=== PATIENT | male | born 1965 | race Caucasian/White ===

== ENCOUNTER 2018-12-30 14:21 | Observation (INO) ==
--- NOTE | 2018-12-30 14:55 | Emergency Department Note ---
Disposition Clinical Impression: CHF (congestive heart failure) Qualifiers: Heart failure type: unspecified Heart failure chronicity: acute on chronic Qualified Code(s): I50.9 - Heart failure, unspecified Disposition: Admitted As Inpatient Condition: Good Time of Disposition: 16:40 General Adult HPI - General Chief complaint: ED General Medical Stated complaint: Swelling to legs, jaw pain, sleepy Time Seen by Provider: 12/30/18 14:39 Source: patient Mode of arrival: ambulatory Limitations: no limitations Nursing Notes Reviewed: Yes Vital Signs Reviewed: Yes - History of Present Illness HPI Narrative: 53 yo man with increasing BLE worse on left than right. He is able to walk and is not having pain. He also states that he is tired all of the time, but not sleeping well. He does snore. He was seen for the same complaint 12/05/18, treated with IV Lasix following cardiac workup and discharged. He endorses no new symptoms apart from increasing edema in RLE. Patient did note that his coworkers think he is more SOB, but he himself does not feel that he is. He denies fever, dizziness, worsening MTZ, CP, calf pain, inability to walk, N/V/D, dysuria, AMS, weakness, numbness, or other concerning symptoms. Patient has a history of CHF, but has been out of his furosemide (90mg) and HTN meds for several days. He has no history of DVT/PE and is a nonsmoker. Pain Scale: 3 - Related Data Allergies Allergy/AdvReac Type Severity Reaction Status Date / Time hydrochlorothiazide Allergy See Verified 12/05/18 13:26 Comments All systems ED: reviewed and negative except as stated. Review of Systems: As Per HPI Cardiovascular: Reports: edema Respiratory: Reports: dyspnea Endocrine: Reports: fatigue Past Medical History - Past Medical History Attestation: Yes The following information was validated with the patient. Source: patient, old records reviewed Medical history: Reports: CHF, hyperlipidemia, hypertension Psychiatric history: Reports: no psych history - Social History Smoking Status: Never smoker Alcohol use: Reports: none Drug use: Reports: none Physical Exam PE Gen: AOx3, NAD, falls asleep within minutes when lying flat HEENT: No lymphadenopathy, no erythema, no oropharyngeal edema. Pupils equal and reactive. Cardio: Regular rate and rhythm, muffled, no murmur, +3 pitting edema BLE with left worse than right; good perfusion to all extremities, no cyanosis Resp: Diminished breath sounds bilaterally, no wheeze, no cough. Patient able to talk comfortably but does pause briefly to catch breath. GI: Abdomen soft, nondistended, nontender to palpation. No ecchymoses, no rash. : No suprapubic tenderness or distention MSK: Normal ROM, no joint swelling or erythema apart from pitting edema BLE. No calf tenderness to palpation or with flexion of feet (neg Gill's sign) Neuro: CNI-XII intact, strength and sensation WNL Psych: Appropriate affect Course Course Narrative: Given PE consistent with fluid overload, history of CHF and being out of meds for several days, cardiac workup initiated and will likely diuresis patient. - Reevaluation(s) Reevaluation #1: VS stable. Lab work WNL apart from BNP. Started IV lasix 80mg. Time: 16:30 Vital Signs Temperature 98.4 F 12/30/18 14:28 Pulse Rate 91 12/30/18 14:28 Respiratory Rate 20 12/30/18 14:28 Blood Pressure 185/118 12/30/18 14:28 O2 Sat by Pulse Oximetry 96 12/30/18 14:28 Temperature 97.4 F L 12/30/18 22:24 Pulse Rate 79 12/30/18 22:25 Respiratory Rate 20 12/30/18 22:24 Blood Pressure 143/79 12/30/18 22:25 O2 Sat by Pulse Oximetry 96 12/30/18 22:24 Oxygen Delivery Oxygen Delivery Nasal Cannula Medical Decision Making - [facility] Narrative Medical decision making narrative: VS stable. Bedside US in ED negative for DVT bilaterally. Given increasing vascular congestion with BNP more than triple what it was 3 weeks ago, and symptoms of IVAN, which has not been diagnosd to this point, recommend admission for diuresis and IVAN evaluation. Patient and family agreed with plan. Hospitalist accepted. - Medical Records Medical records reviewed: Yes I reviewed the patient's medical records. - Lab Data Lab results reviewed: Yes I reviewed the patient's lab results. Result diagrams: 12/30/18 15:03 12/30/18 15:03 Lab Results 12/30/18 12/30/18 12/30/18 Range/Units 15:03 15:03 15:03 WBC 10.2 (4.3-11.1) K/mcL RBC 4.52 (4.19-5.50) M/mcL Hgb 12.9 (12.9-16.9) g/dL Hct 40.9 (37.5-50.1) % MCV 90.5 (83.0-100.0) fL MCH 28.5 (28.0-33.3) pg MCHC 31.5 L (31.6-35.5) g/dL RDW 16.3 H (11.5-14.5) % Plt Count 295 (140-400) K/mcL MPV 10.3 (9.4-12.4) fL Immature Gran % 1.3 (0-4) % Seg Neutrophils % 69.1 % Lymphocytes % 18.6 % Monocytes % 7.4 % Eosinophils % 2.9 % Basophils % 0.7 % Neutrophils # 7.0 (1.6-8.9) K/mcL Lymphocytes # 1.9 (0.6-4.6) K/mcL Monocytes # 0.8 (0.0-1.3) K/mcL Eosinophils # 0.3 (0.0-0.6) K/mcL Basophils # 0.1 (0.0-0.2) K/mcL Sodium (136-145) mEq/L Potassium (3.5-5.1) mEq/L Chloride (98-107) mEq/L Carbon Dioxide (23-29) mEq/L BUN (6-20) mg/dL Creatinine (0.70-1.30) mg/dL Est GFR ( Amer) (> 60) Est GFR (Non-Af Amer) (> 60) BUN/Creatinine Ratio (6-26) Glucose (70-105) mg/dL Calculated Osmolality (280-300) Calcium (8.6-10.3) mg/dL Total Bilirubin (0.3-1.0) mg/dL AST (13-39) Units/L ALT (7-52) Units/L Alkaline Phosphatase (34-104) Units/L Troponin I 0.03 (< 0.04) ng/mL B-Natriuretic Peptide 219 H (Less than 100) pg/mL Serum Total Protein (6.4-8.9) g/dL Albumin (3.5-5.7) g/dL Globulin (2.4-3.5) g/dL Albumin/Globulin Ratio (1.1-2.2) 12/30/18 Range/Units 15:03 WBC (4.3-11.1) K/mcL RBC (4.19-5.50) M/mcL Hgb (12.9-16.9) g/dL Hct (37.5-50.1) % MCV (83.0-100.0) fL MCH (28.0-33.3) pg MCHC (31.6-35.5) g/dL RDW (11.5-14.5) % Plt Count (140-400) K/mcL MPV (9.4-12.4) fL Immature Gran % (0-4) % Seg Neutrophils % % Lymphocytes % % Monocytes % % Eosinophils % % Basophils % % Neutrophils # (1.6-8.9) K/mcL Lymphocytes # (0.6-4.6) K/mcL Monocytes # (0.0-1.3) K/mcL Eosinophils # (0.0-0.6) K/mcL Basophils # (0.0-0.2) K/mcL Sodium 137 (136-145) mEq/L Potassium 3.7 (3.5-5.1) mEq/L Chloride 101 (98-107) mEq/L Carbon Dioxide 26 (23-29) mEq/L BUN 16 (6-20) mg/dL Creatinine 0.96 (0.70-1.30) mg/dL Est GFR ( Amer) > 60 (> 60) Est GFR (Non-Af Amer) > 60 (> 60) BUN/Creatinine Ratio 17 (6-26) Glucose 98 (70-105) mg/dL Calculated Osmolality 285 (280-300) Calcium 8.9 (8.6-10.3) mg/dL Total Bilirubin 0.5 (0.3-1.0) mg/dL AST 19 (13-39) Units/L ALT 16 (7-52) Units/L Alkaline Phosphatase 77 (34-104) Units/L Troponin I (< 0.04) ng/mL B-Natriuretic Peptide (Less than 100) pg/mL Serum Total Protein 7.1 (6.4-8.9) g/dL Albumin 4.0 (3.5-5.7) g/dL Globulin 3.1 (2.4-3.5) g/dL Albumin/Globulin Ratio 1.3 (1.1-2.2) - Radiology Data Radiology results reviewed: Yes I reviewed the patient's radiology results. Chest X-Ray 12/30/18 15:14 IMPRESSION: Cardiomegaly without a focal lung consolidation identified. D/ / Wilton Power / [employer] Interpreting Provider: Wilton Power Attestation Statement - Attestation Attestation: I, José Kwon, examined this patient and my medical decision-making was reviewed with the [employer] SUPERVISOR/PA/Advanced Practice Nurse/Resident Physician. I agree with the documented findings, disposition and treatment plan as described except to the extent set forth below. 53-year-old male presents emergency Department with concerns of swelling to the bilateral lower show his. Patient states that swelling left lower chin is worse in the right however is always larger than the right. Patient states he has a history congestive heart failure and has not been taking his Lasix. Patient initially was given a prescription for 20 mg of Lasix. He did not see significant improvement of the swelling of his lower extremities however so he went to an urgent care who told him to increase to 40 and a 60 and now most recently 90 mg of Lasix twice a day. Because he was using increased Lasix he ran out quickly and now has not taken any within the past few days. Patient denies recent fever. He is unable to lay flat at night secondary shortness of breath. Patient states he wakes up multiple times during the night. He likely has undiagnosed obstructive sleep apnea. Patient falls asleep during lulls in the conversation. I performed a bedside ultrasound of the bilateral lower extremities which did not show evidence of DVT. Chest x-ray shows vascular congestion. BNP is elevated however it is not greater than 500. Patient was given Lasix in the emergency department. He will be admitted to hospitalist for further care and evaluation.
[2018-12-30 15:23] LABS: Basophils # 0.1 K/mcL (0.0-0.2); Basophils % 0.7 %; Eosinophils # 0.3 K/mcL (0.0-0.6); Eosinophils % 2.9 %; Hematocrit 40.9 % (37.5-50.1); Hemoglobin 12.9 g/dL (12.9-16.9); Immature Granulocytes % 1.3 % (0-4); Lymphocytes # 1.9 K/mcL (0.6-4.6); Lymphocytes % 18.6 %; Mean Corpuscular HGB Conc 31.5 g/dL (31.6-35.5); Mean Corpuscular Hemoglobin 28.5 pg (28.0-33.3); Mean Corpuscular Volume 90.5 fL (83.0-100.0); Mean Platelet Volume 10.3 fL (9.4-12.4); Monocytes # 0.8 K/mcL (0.0-1.3); Monocytes % 7.4 %; Platelet Count 295 K/mcL (140-400); Red Blood Count 4.52 M/mcL (4.19-5.50); Red Cell Distribution Width 16.3 % (11.5-14.5); Segmented Neutrophils % 69.1 %; White Blood Count 10.2 K/mcL (4.3-11.1)
[2018-12-30 15:42] LABS: Alanine Aminotransferase 16 Units/L (7-52); Albumin/Globulin Ratio 1.3 (1.1-2.2); Alkaline Phosphatase 77 Units/L (34-104); Aspartate Amino Transferase 19 Units/L (13-39); BUN/Creatinine Ratio 17 (6-26); Bilirubin,Total 0.5 mg/dL (0.3-1.0); Blood Urea Nitrogen 16 mg/dL (6-20); Calcium 8.9 mg/dL (8.6-10.3); Carbon Dioxide 26 mEq/L (23-29); Chloride 101 mEq/L (98-107); Globulin 3.1 g/dL (2.4-3.5); Glucose 98 mg/dL (70-105); Osmolality,Calculated 285 (280-300); Potassium 3.7 mEq/L (3.5-5.1); Sodium 137 mEq/L (136-145); Total Protein 7.1 g/dL (6.4-8.9); eGFR For African Americans > 60 (> 60); eGFR For Non-African Americans > 60 (> 60)
[2018-12-30] MEDS ORDERED: Furosemide 40 MG/4 ML VIAL IVP ONE (16:07)
--- NOTE | 2018-12-30 17:06 | Internal Med History&Physical ---
Date of Encounter: 12/30/18 Time of Encounter: 17:04 Internal Medicine - H&P: HPI Chief complaint: shortness of breath, leg swelling Admitted From: Home Plans for Post Hospital Care: Home History of present illness: Mr. Ruggiero is a 53 year old male with past medical history of hypertension, hyperlipidemia, CHF unclear systolic or diastolic, borderline diabetes, obesity was sent in by his boss because they felt that he was sleeping at work a lot and also short of breath. Patient was seen in ER last month for bilateral lower extremity edema and was given Lasix and was discharged from ER. Patient is follows a nurse practitioner as a primary and has not seen for last 3 months. Recently patient has not filled his prescription of blood pressure medication and Lasix. He said his leg swelling started in July. He denies any chest pain. He does not have significant insight into all his illness. He does report feeling tired all the time and not sleeping well and feeling sleepy at work. He has noticed that his legs are more swollen than even before and he has put on significantly more weight. His boss noticed that he was short of breath and asked him to get to Hospital for further evaluation. He denies any chest pain, abdominal pain and nausea vomiting or diarrhea. He has some left-sided calf pain. He did have DVT study during his last visit which was negative. Patient was evaluated in ER and was found to have elevated BNP than his last visit. His blood pressure was also elevated. Patient was given dose of Lasix and admission was requested for CHF exacerbation. Patient denied any chest hong n. He reported he subjectively does not feel short of breath however others have told that he appears to be short of breath. He corroborates above mentioned history. He also mentioned he feels that he has a swelling behind his testicles. Has mild discomfort associated with it . he has had a left-sided inguinal hernia surgery many years ago. Denies any difficulty urinating or any bowel difficulties. Denies any history of heart attack in the past. Patient does not know his medication and would need to be confirmed through pharmacy. Past Med Surg Social Fam HX - Past Medical History Medical history: CHF, hyperlipidemia, hypertension Psychiatric history: no psych history - Past Surgical History Additional surgical history: 2 hernia surgery - Social History Smoking Status: Never smoker Alcohol use: none Drug use: none - Additional Family History Additional family history: Sister has sleep apnea Internal Medicine - H&P: Meds Allergy/AdvReac Type Severity Reaction Status Date / Time hydrochlorothiazide Allergy See Verified 12/05/18 13:26 Comments All Systems PM: A 10-system review of systems was performed and is negative for pertinent findin gs except as documented above in the HPI. - Constitutional Vitals: Temp Pulse Resp BP Pulse Ox 98.4 F 94 24 172/100 100 12/30/18 14:58 12/30/18 16:47 12/30/18 16:47 12/30/18 16:47 12/30/18 16:47 Exam: Constitutional: Vitals as noted. Conversant. obese Eyes : Sclera white, conjunctiva clear, no lid lag, PEARLA. ENT : Grossly normal hearing. Moist mucus membranes. Respiratory : Clear to auscultation bilaterally. No accessory muscle use, rales, rhonchi or wheezes Cardiovascular : RRR, +S1, +S2. no murmur, gallop, rubs. No chest wall tenderness GI/Abdominal : Soft, Non-tender, Non-distended, obese, no peritoneal signs. On scrotal exam a localized swelling discontinuous from testes upper limits could not be determined, no cough impulse felt Musculoskeletal: no deformity noted. 2+ edema Lt > Rt, pulses palpable and symmetrical in UE/LE. Lt calf tenderness. Neurological: AO X3, CN II-XII grossly intact, grossly normal motor and sensory exam. Skin: No skin rash, lesions or ulcers noted. Internal Med - H&P Results - Labs CBC & Chem 7: 12/30/18 15:03 12/30/18 15:03 Labs: Short CBC 12/30/18 Range/Units 15:03 WBC 10.2 (4.3-11.1) K/mcL Hgb 12.9 (12.9-16.9) g/dL Hct 40.9 (37.5-50.1) % Plt Count 295 (140-400) K/mcL Neutrophils # 7.0 (1.6-8.9) K/mcL BMP 12/30/18 15:03 Sodium 137 Potassium 3.7 Chloride 101 Carbon Dioxide 26 BUN 16 Creatinine 0.96 Glucose 98 Calcium 8.9 Cardiac Enzymes 12/30/18 Range/Units 15:03 Troponin I 0.03 (< 0.04) ng/mL Liver Function 12/30/18 Range/Units 15:03 Total Bilirubin 0.5 (0.3-1.0) mg/dL AST 19 (13-39) Units/L ALT 16 (7-52) Units/L Alkaline Phosphatase 77 (34-104) Units/L Albumin 4.0 (3.5-5.7) g/dL - EKG Data -: EKG Interpreted by Myself EKG shows normal: sinus rhythm - Impressions ITS Impressions Chest X-Ray 12/30/18 15:14 IMPRESSION: Cardiomegaly without a focal lung consolidation identified. D/ / Wilton Power / [employer] Interpreting Provider: Wilton Power - Assessment and Plan (1) Shortness of breath Current Visit: Yes Status: Acute Assessment and plan: Possibly related to CHF and noncompliance with his medication including Lasix and uncontrolled blood pressure We will obtain echocardiogram for further evaluation. We will keep patient on 40 twice a day Lasix. Monitor renal function. We will obtain d-dimer and DVT study. He did have negative study last month but currently he has some left cough pain. There is also a component of obesity hypoventilation and obstructive sleep apnea. Will need outpatient sleep study. Will need confirmation of his home medication and likely need to blood pressure medication on discharge. Measure weights daily and strength in and out monitoring. (2) Lower extremity edema Current Visit: Yes Status: Acute Assessment and plan: Possibly related to his CHF. However make sure there is no DVT. Also likely component of nonpitting edema given his obesity as well as lymphedema due to his obesity. (3) Scrotal swelling Current Visit: Yes Status: Acute Assessment and plan: Reported having scrotal swelling for unspecified time. Has mild associated pain. He has history of hernia surgery on that side. No cough impulse on palpation an upper limit could not be established. Possibly spermatic cord lesion. We will obtain pelvic CT for further evaluation. (4) Uncontrolled hypertension Current Visit: Yes Status: Acute Assessment and plan: Patient does not taking medication appropriately at home. Blood pressure 180s/110 in ER. We will likely need to medication for good cont rol. We will confirm home medication. We will start patient on beta toshia and lisinopril for now. (5) DVT prophylaxis Current Visit: Yes Status: Acute Assessment and plan: Heparin subcutaneous (6) Morbid (severe) obesity due to excess calories Current Visit: Yes Status: Acute Assessment and plan: Patient is morbidly obese likely due to poor diet. Discussed lifestyle changes to promote weight loss. Patient also likely had associated obesity hypoventilation syndrome and sleep disorder. Patient will need sleep study as outpatient. - Time Spent With Patient Total time spent is greater than 50% in coordination of care (as documented) at patient's floor/unit and/or counseling patient:
[2018-12-30] MEDS ORDERED: *HR* Labetalol 20 MG/4 ML SYRINGE IVP ONE (17:43)
[2018-12-30] MEDS: *HR* Heparin 5,000 UNIT/ML VIAL SQ SCH (20:45)
[2018-12-30] MEDS: Furosemide 40 MG/4 ML VIAL IVP SCH (21:33)
[2018-12-30 21:35] LABS: ABG Base Excess 7 mEq/L (-2 to 3); ABG HCO3 34 mEq/L (21-27); ABG Oxygen Saturation 96 % (95-98); ABG PCO2 56 mmHg (35-45); ABG PH 7.39 pH Units (7.32-7.45); ABG PO2 88 mmHg (85-104); ABG TCO2 35 mEq/L (20-26)
[2018-12-30 22:19] LABS: Amphetamine Screen,Urine Negative ng/mL (Cutoff=1000); Barbiturate Screen,Urine Negative ng/mL (Cutoff=200); Benzodiazepines Screen,Urine Negative ng/mL (Cutoff=200); Cannabinoid Screen,Urine Negative ng/mL (Cutoff = 50); Cocaine Screen,Urine Negative ng/mL (Cutoff= 300); Opiate Screen,Urine Negative ng/mL (Cutoff=300); Phencyclidine Screen,Urine Negative ng/mL (Cutoff=25)
[2018-12-31 02:48] LABS: BUN/Creatinine Ratio 18 (6-26); Blood Urea Nitrogen 18 mg/dL (6-20); Calcium 8.2 mg/dL (8.6-10.3); Carbon Dioxide 26 mEq/L (23-29); Chloride 100 mEq/L (98-107); Chol/HDL Ratio 6.5 (0-4.9); Cholesterol 254 mg/dL (< 200); Glucose 131 mg/dL (70-105); HDL Cholesterol 39 mg/dL (40-59); LDL Cholesterol,Calculated 166 mg/dL (0-99); Magnesium 2.1 mg/dL (1.6-2.6); Osmolality,Calculated 286 (280-300); Phosphorous 3.9 mg/dL (2.7-4.5); Potassium 3.6 mEq/L (3.5-5.1); Sodium 136 mEq/L (136-145); Triglycerides 244 mg/dL (< 150); eGFR For African Americans > 60 (> 60); eGFR For Non-African Americans > 60 (> 60)
[2018-12-31] MEDS: *HR* Heparin 5,000 UNIT/ML VIAL SQ SCH ×3 (05:43→22:42)
[2018-12-31] MEDS ORDERED: Acetaminophen 325 MG TABLET PO PRN (06:26)
[2018-12-31] MEDS: Furosemide 40 MG/4 ML VIAL IVP SCH ×2 (08:35→17:07)
[2018-12-31] MEDS ORDERED: Lisinopril 20 MG TABLET PO SCH (09:00)
--- NOTE | 2018-12-31 10:43 | Internal Med Progress Note ---
Hospitalist Progress Note - Encounter Date of Encounter: 12/31/18 Time of Encounter: 10:41 - Subjective Interval History: Mr. Ruggiero is a 53 year old male with past medical history of hypertension, hyperlipidemia, CHF unclear systolic or diastolic, borderline diabetes, obesity was sent in by his boss because they felt that he was sleeping at work a lot and also short of breath. Patient was seen in ER last month for bilateral lower extremity edema and was given Lasix and was discharged from ER. Patient is follows a nurse practitioner as a primary and has not seen for last 3 months. Recently patient has not filled his prescription of blood pressure medication and Lasix. He said his leg swelling started in July. He denies any chest pain. He does not have significant insight into all his illness. He does report feeling tired all the time and not sleeping well and feeling sleepy at work. He has noticed that his legs are more swollen than even before and he has put on significantly more weight. His boss noticed that he was short of breath and asked him to get to Hospital for further evaluation. He denies any chest pain, abdominal pain and nausea vomiting or diarrhea. He has some left-sided calf pain. He did have DVT study during his last visit which was negative. Patient was evaluated in ER and was found to have elevated BNP than his last visit. His blood pressure was also elevated. Patient was given dose of Lasix and admission was requested for CHF exacerbation. Patient denied any chest pain. He reported he subjectively does not feel short of breath however others have told that he appears to be short of breath. He corroborates above mentioned history. He also mentioned he feels that he has a swelling behind his testicles. Has mild discomfort associated with it . he has had a left-sided inguinal hernia surgery many years ago. Denies any difficulty urinating or any bowel difficulties. Denies any history of heart attack in the past. Patient does not know his medication and would need to be confirmed through pharmacy. - Exam Vitals: Temp Pulse Resp BP Pulse Ox 97.8 F 83 16 144/87 95 12/31/18 07:42 12/31/18 07:42 12/31/18 07:42 12/31/18 07:42 12/31/18 07:42 Exam: Constitutional: Vitals as noted. Conversant. obese Eyes : Sclera white, conjunctiva clear, no lid lag, PEARLA. ENT : Grossly normal hearing. Moist mucus membranes. Respiratory : Clear to auscultation bilaterally. No accessory muscle use, rales, rhonchi or wheezes Cardiovascular : RRR, +S1, +S2. no murmur, gallop, rubs. No chest wall tenderness GI/Abdominal : Soft, Non-tender, Non-distended, obese, no peritoneal signs. On scrotal exam a localized swelling discontinuous from testes upper limits could not be determined, no cough impulse felt Musculoskeletal: no deformity noted. 2+ edema Lt > Rt, pulses palpable and symmetrical in UE/LE. Lt calf tenderness. Neurological: AO X3, CN II-XII grossly intact, grossly normal motor and sensory exam. Skin: No skin rash, lesions or ulcers noted. - Assessment and Plan (1) Shortness of breath Current Visit: Yes Status: Acute Assessment and Plan: 12/30 Possibly related to CHF and noncompliance with his medication including Lasix and uncontrolled blood pressure We will obtain echocardiogram for further evaluation. We will keep patient on 40 twice a day Lasix. Monitor renal function. We will obtain d-dimer and DVT study. He did have negative study last month but currently he has some left cough pain. There is also a component of obesity hypoventilation and obstructive sleep apnea. Will need outpatient sleep study. Will need confirmation of his home medication and likely need to blood pressure medication on discharge. Measure weights daily and strength in and out monitoring. 12/31 Pending ECHO. Continue Lasix. (2) Lower extremity edema Current Visit: Yes Status: Acute Assessment and Plan: Possibly related to his CHF. However make sure there is no DVT. Also likely component of nonpitting edema given his obesity as well as lymphedema due to his obesity. (3) Scrotal swelling Current Visit: Yes Status: Acute Assessment and Plan: CT abd pelvis shoed bilateral inguinal hernia. f/u with surgery as outpatient. (4) Uncontrolled hypertension Current Visit: Yes Status: Acute Assessment and Plan: Patient does not taking medication appropriately at home. Blood pressure 180 s/110 in ER. started patient on beta toshia and lisinopril. BP improved. (5) DVT prophylaxis Current Visit: Yes Status: Acute Assessment and Plan: Heparin subcutaneous (6) Morbid (severe) obesity due to excess calories Current Visit: Yes Status: Acute Assessment and Plan: Patient is morbidly obese likely due to poor diet. Discussed lifestyle changes to promote weight loss. Patient also likely had associated obesity hypoventilation syndrome and sleep disorder. Patient will need sleep study as outpatient. - Time Spent with Patient Total time spent is greater than 50% in coordination of care (as documented) at patient's floor/unit and/or counseling patient: Greater than 35 minutes Plan of Care Discussed with: patient Internal Medicine: Result - Labs CBC & Chem 7: 12/30/18 15:03 12/31/18 02:09 Labs: Short CBC 12/30/18 Range/Units 15:03 WBC 10.2 (4.3-11.1) K/mcL Hgb 12.9 (12.9-16.9) g/dL Hct 40.9 (37.5-50.1) % Plt Count 295 (140-400) K/mcL Neutrophils # 7.0 (1.6-8.9) K/mcL BMP 12/30/18 12/31/18 15:03 02:09 Sodium 137 136 Potassium 3.7 3.6 Chloride 101 100 Carbon Dioxide 26 26 BUN 16 18 Creatinine 0.96 1.02 Glucose 98 131 H Calcium 8.9 8.2 L Cardiac Enzymes 12/30/18 Range/Units 15:03 Troponin I 0.03 (< 0.04) ng/mL Liver Function 12/30/18 Range/Units 15:03 Total Bilirubin 0.5 (0.3-1.0) mg/dL AST 19 (13-39) Units/L ALT 16 (7-52) Units/L Alkaline Phosphatase 77 (34-104) Units/L Albumin 4.0 (3.5-5.7) g/dL - ABG Interpretation ABG results: ABG ABG pH 7.39 pH Units (7.32-7.45) 12/30/18 21:28 ABG pCO2 56 mmHg (35-45) H 12/30/18 21:28 ABG pO2 88 mmHg (85-104) 12/30/18 21:28 ABG O2 Saturation 96 % (95-98) 12/30/18 21:28 PT/INR, D-dimer D-Dimer 547 ng/mLFEU (0-500) H 12/30/18 18:23 - Impressions Impressions Chest X-Ray 12/30/18 15:14 IMPRESSION: Cardiomegaly without a focal lung consolidation identified. D/ / Wilton Power / Wilton Power Interpreting Provider: Wilton Power Pelvis CT 12/30/18 20:05 IMPRESSION: Bilateral fat containing inguinal hernias larger on the left than the right. The inguinal hernia on the left extends into the left scrotal sac. D/ / 12/30/2018 20:15:18 Arnold Reina MD / [facility] Interpreting Provider: Arnold Reina MD Head CT 12/30/18 23:08 IMPRESSION: No acute intracranial abnormality. D/ / 12/31/2018 07:10:49 Arnold Reina MD / [facility] Interpreting Provider: Arnold Reina MD Consult Discharge Plan - Plan Referrals: Claudia Kaur FIREFIGHTER [Primary Care Provider] -
[2019-01-01] MEDS: *HR* Heparin 5,000 UNIT/ML VIAL SQ SCH ×3 (05:44→20:53)
[2019-01-01] MEDS: amLODIPine 5 MG TABLET PO SCH (08:51)
[2019-01-01] MEDS: Multivit/Ca/Min/Fe/FA 1 TAB TABLET PO SCH (08:51)
[2019-01-01] MEDS: Lisinopril 20 MG TABLET PO SCH ×2 (08:51→20:53)
[2019-01-01] MEDS: Furosemide 40 MG/4 ML VIAL IVP SCH ×2 (08:52→16:36)
--- NOTE | 2019-01-01 11:44 | Internal Med Progress Note ---
Hospitalist Progress Note - Encounter Date of Encounter: 01/01/19 Time of Encounter: 11:41 - Subjective Interval History: Mr. Ruggiero is a 53 year old male with past medical history of hypertension, hyperlipidemia, CHF unclear systolic or diastolic, borderline diabetes, obesity was sent in by his boss because they felt that he was sleeping at work a lot and also short of breath. Patient was seen in ER last month for bilateral lower extremity edema and was given Lasix and was discharged from ER. Patient is follows a nurse practitioner as a primary and has not seen for last 3 months. Recently patient has not filled his prescription of blood pressure medication and Lasix. He said his leg swelling started in July. He denies any chest pain. He does not have significant insight into all his illness. He does report feeling tired all the time and not sleeping well and feeling sleepy at work. He has noticed that his legs are more swollen than even before and he has put on significantly more weight. His boss noticed that he was short of breath and asked him to get to Hospital for further evaluation. He denies any chest pain, abdominal pain and nausea vomiting or diarrhea. He has some left-sided calf pain. He did have DVT study during his last visit which was negative. ECHO was unremarkable, Pt passed 6 min walk study. SOB improved with IV lasix as well as leg swelling. Sleep study ordered. Pt seen and examined in the room. He reported improved sob and leg swelling. - Exam Vitals: Temp Pulse Resp BP Pulse Ox 97.6 F 60 15 134/88 98 01/01/19 07:22 01/01/19 07:22 01/01/19 07:22 01/01/19 07:22 01/01/19 09:59 Exam: Constitutional: Vitals as noted. Conversant. obese Eyes : Sclera white, conjunctiva clear, no lid lag, PEARLA. ENT : Grossly normal hearing. Moist mucus membranes. Respiratory : Clear to auscultation bilaterally. No accessory muscle use, rales, rhonchi or wheezes Cardiovascular : RRR, +S1, +S2. no murmur, gallop, rubs. No chest wall tenderness GI/Abdominal : Soft, Non-tender, Non-distended, obese, no peritoneal signs. On scrotal exam a localized swelling discontinuous from testes upper limits could not be determined, no cough impulse felt Musculoskeletal: no deformity noted. 2+ edema Lt > Rt, pulses palpable and symmetrical in UE/LE. Lt calf tenderness. Neurological: AO X3, CN II-XII grossly intact, grossly normal motor and sensory exam. Skin: No skin rash, lesions or ulcers noted. - Assessment and Plan (1) Shortness of breath Current Visit: Yes Status: Acute Assessment and Plan: 12/30 Possibly related to CHF and noncompliance with his medication including Lasix and uncontrolled blood pressure We will obtain echocardiogram for further evaluation. We will keep patient on 40 twice a day Lasix. Monitor renal function. We will obtain d-dimer and DVT study. He did have negative study last month but currently he has some left cough pain. There is also a component of obesity hypoventilation and obstructive sleep apnea. Will need outpatient sleep study. Will need confirmation of his home medication and likely need to blood pressure medication on discharge. Measure weights daily and strength in and out monitoring. 12/31 Pending ECHO. Continue Lasix. 01/01 ECHO showed LVEF 55%, Mildly dilated left ventricle, Mild concentric left ventricular hypertrophy, Mild left ventricular diastolic dysfunction, Normal right ventricular structure and function. Mild mitral regurgitation, No evidence of pulmonary hypertension identified. DVT study negative. Passed 6 min walk study. Pending sleep study. Continue IV lasix, plan to change to oral, dc in am. (2) Lower extremity edema Current Visit: Yes Status: Acute Assessment and Plan: Possibly related to his CHF. DVT study was negative. (3) Scrotal swelling Current Visit: Yes Status: Acute Assessment and Plan: CT abd pelvis shoed bilateral inguinal hernia. f/u with surgery as outpatient. (4) Uncontrolled hypertension Current Visit: Yes Status: Acute Assessment and Plan: Patient does not taking medication appropriately at home. Blood pressure 180s/110 in ER. started patient on beta toshia and lisinopril. BP improved. (5) Morbid (severe) obesity due to excess calories Current Visit: No Status: Chronic Assessment and Plan: Patient is morbidly obese likely due to poor diet. Discussed lifestyle changes to promote weight loss. Patient also likely had associated obesity hypoventilation syndrome and sleep disorder. Patient will need sleep study as outpatient. (6) DVT prophylaxis Current Visit: Yes Status: Acute Assessment and Plan: Heparin subcutaneous - Time Spent with Patient Total time spent is greater than 50% in coordination of care (as documented) at patient's floor/unit and/or counseling patient: Greater than 35 minutes Plan of Care Discussed with: patient Internal Medicine: Result - Labs CBC & Chem 7: 12/30/18 15:03 12/31/18 02:09 - ABG Interpretation ABG results: ABG ABG pH 7.39 pH Units (7.32-7.45) 12/30/18 21:28 ABG pCO2 56 mmHg (35-45) H 12/30/18 21:28 ABG pO2 88 mmHg (85-104) 12/30/18 21:28 ABG O2 Saturation 96 % (95-98) 12/30/18 21:28 PT/INR, D-dimer D-Dimer 547 ng/mLFEU (0-500) H 12/30/18 18:23 - Impressions Impressions Head CT 12/30/18 23:08 IMPRESSION: No acute intracranial abnormality. D/ / 12/31/2018 07:10:49 Arnold Reina MD / earnold Interpreting Provider: Arnold Reina MD Echocardiogram 12/31/18 10:09 Impressions: LVEF 55%. Mildly dilated left ventricle. Mild concentric left ventricular hypertrophy. Mild left ventricular diastolic dysfunction. Normal right ventricular structure and function. Mild mitral regurgitation. No evidence of pulmonary hypertension identified. Left Ventricular Wall Motion: Rest Echo Findings All wall segments showed normal motion. Findings: Study Quality * Technically adequate exam. ECG Findings * Normal sinus rhythm. Left Ventricle * LVEF 55%. * Mildly dilated left ventricle. * Mild concentric left ventricular hypertrophy. * Mild left ventricular diastolic dysfunction. Right Ventricle * Normal right ventricular structure and function. Left Atrium * Severely dilated left atrium. Right Atrium * Moderately dilated right atrium. Interatrial Septum * Interatrial septum not well evaluated. Aortic Valve * Trileaflet aortic valve with normal function. * No aortic regurgitation. * No aortic stenosis. Mitral Valve * Normal mitral valve structure. * Mild mitral regurgitation. * No mitral stenosis. Tricuspid Valve * Normal tricuspid valve structure and function. * Trace tricuspid regurgitation. * No evidence of pulmonary hypertension identified. Pulmonic Valve * Normal pulmonic valve structure and function. * No pulmonic regurgitation. Aorta * Normally sized aortic root. Pericardium * The pericardium appears normal. IVC * Normal IVC dimensions and inspiratory collapse. Pulmonary Artery * Normal visualized portions of the main pulmonary artery. Consult Discharge Plan - Plan Referrals: Claudia Kaur CNP [Primary Care Provider] -
--- NOTE | 2019-01-01 13:01 | Electrocardiograph Report ---
[place] [id number] Test Date: 2018-12-30 Pat Name: Chi Ruggiero Department: [id number] Room: 3B46 Gender: [employer] Application Architect: : [id number] Requested By: Judit Del Valle Order Number: [id number] Reading MD: Olayinka Paul Measurements Intervals [place] Rate: 85 P: 46 FL: 172 QRS: 9 QRSD: 95 T: 50 QT: 386 QTc: 459 Interpretive Statements Sinus rhythm Probable left atrial enlargement Electronically Signed On 01-01-2019 12:02:21 EDT by Olayinka Paul
[2019-01-01] MEDS ORDERED: traMADol 50 MG TABLET PO ONE (22:27)
[2019-01-02] MEDS: *HR* Heparin 5,000 UNIT/ML VIAL SQ SCH (05:37)
[2019-01-02] MEDS ORDERED: traMADol 50 MG TABLET PO ONE (05:43)
[2019-01-02 07:01] VITALS: BP 151/84
[2019-01-02] MEDS: Lisinopril 20 MG TABLET PO SCH (08:17)
[2019-01-02] MEDS: Furosemide 40 MG/4 ML VIAL IVP SCH (08:18)
[2019-01-02] MEDS: Multivit/Ca/Min/Fe/FA 1 TAB TABLET PO SCH (08:18)
[2019-01-02] MEDS: amLODIPine 5 MG TABLET PO SCH (08:18)
--- NOTE | 2019-01-02 10:25 | Discharge Summary ---
- NOTES TO OUTPATIENT PROVIDER Notes to Outpatient Provider: f/u with PCP within 2 weeks for sleep study. Date of Encounter: 01/02/19 Time of Encounter: 10:23 - Discharge Diagnosis (1) Shortness of breath Priority: Primary Status: Acute Assessment and Plan: 12/30 Possibly related to CHF and noncompliance with his medication including Lasix and uncontrolled blood pressure We will obtain echocardiogram for further evaluation. We will keep patient on 40 twice a day Lasix. Monitor renal function. We will obtain d-dimer and DVT study. He did have negative study last month but currently he has some left cough pain. There is also a component of obesity hypoventilation and obstructive sleep apnea. Will need outpatient sleep study. Will need confirmation of his home medication and likely need to blood pressure medication on discharge. Measure weights daily and strength in and out monitoring. 12/31 Pending ECHO. Continue Lasix. 01/01 ECHO showed LVEF 55%, Mildly dilated left ventricle, Mild concentric left ventricular hypertrophy, Mild left ventricular diastolic dysfunction, Normal right ventricular structure and function. Mild mitral regurgitation, No evidence of pulmonary hypertension identified. DVT study negative. Passed 6 min walk study. Pending sleep study. Continue IV lasix, plan to change to oral, dc in am. (2) Lower extremity edema Priority: Primary Status: Acute Assessment and Plan: Possibly related to his CHF. DVT study was negative. (3) Scrotal swelling Priority: Primary Status: Acute Assessment and Plan: CT abd pelvis shoed bilateral inguinal hernia. f/u with surgery as outpatient. (4) Uncontrolled hypertension Priority: Secondary Status: Acute Assessment and Plan: Patient does not taking medication appropriately at home. Blood pressure 180s/110 in ER. started patient on beta toshia and lisinopril. BP improved. (5) Morbid (severe) obesity due to excess calories Priority: Secondary Status: Chronic (6) DVT prophylaxis Priority: Primary Status: Acute Hospital course: Mr. Ruggiero is a 53 year old male with past medical history of hypertension, hyperlipidemia, CHF unclear systolic or diastolic, borderline diabetes, obesity was sent in by his boss because they felt that he was sleeping at work a lot and also short of breath. Patient was seen in ER last month for bilateral lower extremity edema and was given Lasix and was discharged from ER. Patient is follows a nurse practitioner as a primary and has not seen for last 3 months. Recently patient has not filled his prescription of blood pressure medication and Lasix. He said his leg swelling started in July. He denies any chest pain. He does not have significant insight into all his illness. He does report feeling tired all the time and not sleeping well and feeling sleepy at work. He has noticed that his legs are more swollen than even before and he has put on significantly more weight. His boss noticed that he was short of breath and asked him to get to Hospital for further evaluation. He has some left-sided calf pain. He did have DVT study during his last visit which was negative. Patient was evaluated in ER and was found to have elevated BNP 219 than his last visit. His blood pressure was also elevated. Patient was given dose of Lasix and admission was requested for CHF exacerbation. He also mentioned he feels that he has a swelling behind his testicles. Has mild discomfort associated with it . he has had a left-sided inguinal hernia surgery many years ago. Denies any history of heart attack in the past. D-dimer was positive but DVT study was negative. ABG showed mild CO2 (56) retention with normal pH (7.39). CT plevis showed bilateral inguinal hernia. EC HO showed LV EF 55%, mild LVH and LVDD, no pHTN. He passed 6 min walking study. IVAN and obesity hypo-ventilation syndrome were suspected. He will have a sleep study as outpatient. He was encouraged to f/u with surgery if he want inguinal hernia repair. Discharge discussed with: patient Time spent discussing smoking cessation with patient: more than 10 minutes - Time Spent with Patient Total time spent providing and/or coordinating discharge services: Time spent: Greater than 30 minutes - Discharge Medications Prescriptions: Continued Amlodipine Besylate 5 mg PO DAILY Carvedilol 3.125 mg PO BID Furosemide [Lasix] 80 mg PO DAILY Lisinopril [Zestril] 20 mg PO BID Multivit-Min/Folic/Vit K/Lycop [Men's Multivitamin Tablet] 1 tab PO DAILY Potassium Chloride [K-Tab ER] 10 meq PO DAILY Home Medications: Amlodipine Besylate 5 mg PO DAILY 12/31/18 [History] Carvedilol 3.125 mg PO BID 12/31/18 [History] Furosemide [Lasix] 80 mg PO DAILY 12/31/18 [History] Lisinopril [Zestril] 20 mg PO BID 12/31/18 [History] Multivit-Min/Folic/Vit K/Lycop [Men's Multivitamin Tablet] 1 tab PO DAILY 12/31/18 [History] Potassium Chloride [K-Tab ER] 10 meq PO DAILY 12/31/18 [History] Allergies/Adverse Reactions: Allergy/AdvReac Type Severity Reaction Status Date / Time hydrochlorothiazide Allergy See Verified 12/05/18 13:26 Comments Date of admission: 12/30/18 16:47 Primary care physician: FLORENCE Glynn Consults: 01/01/19 09:22 Consult to Nurse Navigator [CONS] Routine Comment: CHF Anticipated date of discharge: 01/02/19 - Constitutional Vitals: Temp Pulse Resp BP Pulse Ox 97.7 F 94 18 151/84 95 01/02/19 06:58 01/02/19 06:58 01/02/19 06:58 01/02/19 06:58 01/02/19 06:58 General appearance: Present: A&O X 3 Exam: Constitutional: Vitals as noted. Conversant. obese Eyes : Sclera white, conjunctiva clear, no lid lag, PEARLA. ENT : Grossly normal hearing. Moist mucus membranes. Respiratory : Clear to auscultation bilaterally. No accessory muscle use, rales, rhonchi or wheezes Cardiovascular : RRR, +S1, +S2. no murmur, gallop, rubs. No chest wall tenderness GI/Abdominal : Soft, Non-tender, Non-distended, obese, no peritoneal signs. On scrotal exam a localized swelling discontinuous from testes upper limits could not be determined, no cough impulse felt Musculoskeletal: no deformity noted. 2+ edema Lt > Rt, pulses palpable and symmetrical in UE/LE. Lt calf tenderness. Neurological: AO X3, CN II-XII grossly intact, grossly normal motor and sensory exam. Skin: No skin rash, lesions or ulcers noted. - Patient Status Disposition: Home, Self-Care Condition: Good Functional capacity at discharge: independent ambulation Overall status at discharge: patient is progressing back to baseline - Discharge Instructions Follow Up With: Claudia Kaur NUCLEAR CHEMISTRY TECHNICIAN [Primary Care Provider] - - Diet and Activity Activity: increase activity as tolerated Diet: low fat, low cholesterol, low salt diet
== END 2019-01-02 12:52 | disposition home or self-care (01) ==
LOC: EMEROOARM 14:21 → 3BNU 14:21
PROVIDERS: ADMIT Internal Medicine; ATTEND Internal Medicine